=== PATIENT | male | born 1970 | race Caucasian/White ===

== ENCOUNTER → 2024-04-04 07:17 | Outpatient (REF) | payer OTHER, SELFPAY ==
[2024-04-04 09:58] LABS: ALT (SGPT) 53 U/L (0-50); AST (SGOT) 51 U/L (17-59); Albumin 4.5 g/dl (3.5-5.0); Alkaline Phosphatase 57 U/L (38-126); Direct Bilirubin 0.4 mg/dl (0.0-0.4); Total Bilirubin 2.5 mg/dl (0.2-1.3); Total Protein 7.5 g/dl (6.3-8.2)
== END ==
LOC: HWRAD 07:17
PROVIDERS: ATTENDING PHYSICIAN Internal Medicine
DX: E78.2 Mixed hyperlipidemia (principal); R79.89 Other specified abnormal findings of blood chemistry; Z68.31 Body mass index [BMI] 31.0-31.9, adult
CPT/HCPCS: 36415; 76700; 80076

== ENCOUNTER → 2024-05-14 07:02 | Outpatient (REF) | payer OTHER, SELFPAY | LOC: HWRAD 07:02 | PROVIDERS: ATTENDING PHYSICIAN Internal Medicine Gastroenterology; FAMILY PHYSICIAN Internal Medicine | DX: R74.01 Elevation of levels of liver transaminase levels (principal) | CPT/HCPCS: 76700 ==